=== PATIENT | male | born 1995 | race African-American/Black ===

== ENCOUNTER 2023-04-13 16:37 | Emergency (ER) | payer SELFPAY ==
[2023-04-13 18:28] LABS: #Eosinphils 0.1 10x3/uL (0.0-0.5); #Monocytes 0.5 10x3/uL (0.0-1.1); #Neutrophils 3.3 10x3/uL (1.5-8.4); %Basophils 0.6 % (0.0-2.0); %Eosinophils 1.4 % (0.0-6.0); %Lymphocytes 37.7 % (18.0-47.0); %Monocytes 7.9 % (0.0-10.0); %Neutrophils 52.1 % (40.0-75.0); Hematocrit 44.1 % (38.8-50.0); Hemoglobin 15.2 g/dL (13.5-17.5); Mean Corpuscular HGB CONC 34.5 g/dL (32.0-36.0); Mean Corpuscular Hemoglobin 29.5 pg (27.0-33.0); Mean Corpuscular Volume 85.6 fl (81.2-95.1); Mean Platelet Volume 9.7 fl (7.4-10.4); Platelet Count 345 10x3/uL (150-450); RBC Distribution Width 12.4 % (11.5-14.5); Red Blood Cell (RBC) Count 5.15 10x6/uL (4.32-5.72); White Blood Cell (WBC) Count 6.3 10x3/uL (3.5-10.5)
[2023-04-13 18:40] LABS: ALT (SGPT) 15 U/L (8-55); AST (SGOT) 17 U/L (5-34); Alkaline Phosphatase 41 U/L (40-110); Anion Gap 9 mmol/L (10-20); BUN (Urea Nitrogen) 8 mg/dL (8.9-20.6); Bilirubin, Total 0.6 mg/dL (0.2-1.2); Calc. Creatinine Clearance 0 mL/min (70-130); Calcium 8.7 mg/dL (7.8-10.44); Carbon Dioxide 29 mmol/L (22-29); Chloride 106 mmol/L (98-107); Estimated GFR 88; Globulin 2.5 g/dL (2.4-3.5); Glucose 91 mg/dL (70-105); Lipase 134 U/L (8-78); Magnesium 1.8 mg/dL (1.6-2.6); Potassium 4.5 mmol/L (3.5-5.1); Protein, Total 6.5 g/dL (6.0-8.3); Sodium 139 mmol/L (136-145)
[2023-04-13 18:43] LABS: Troponin I Less than 0.010 ng/mL (< 0.028)
[2023-04-13] MEDS ORDERED: Ibuprofen 200 MG TAB ONE (20:50)
== END 2023-04-13 21:05 | disposition home or self-care (01) ==
LOC: CSHERS 16:37
DX: R07.89 Other chest pain (principal); Z87.891 Personal history of nicotine dependence
CPT/HCPCS: 36415; 71045; 80053; 83690; 83735; 84484; 85025; 93005

== ENCOUNTER 2024-11-30 21:09 | Emergency (ER) | payer SELFPAY ==
[2024-12-01] MEDS ORDERED: Dexamethasone 10 MG/ML VIAL ONE (00:13)
[2024-12-01] MEDS ORDERED: Ketorolac Tromethamine 30 MG (1 mL) VIAL ONE (00:13)
== END 2024-12-01 00:21 | disposition home or self-care (01) ==
LOC: CSHERS 21:09
DX: J06.9 Acute upper respiratory infection, unspecified (principal); Z87.891 Personal history of nicotine dependence
CPT/HCPCS: 87428; 96372; 99283; J1100; J1885